=== PATIENT | female | born 1950 | race Caucasian/White ===

== ENCOUNTER 2017-06-10 17:04 | Emergency (ER) | payer MEDICARE ==
[~2017-06-10] VITALS: Ht 149.9 cm; Wt 52.3 kg
[~2017-06-10 17:04] MED LIST: AMLO10TA PO; CIPR-230 PO; LISI40TA4 PO
[2017-06-10 17:33] VITALS: BP 132/74
[2017-06-10] MEDS ORDERED: LISI40TA4 PO (18:14)
[2017-06-10] MEDS ORDERED: ALBU8HFA PO (18:14)
== END 2017-06-10 18:35 | disposition home or self-care (01) ==
LOC: ER 17:05
DX: I10 Essential (primary) hypertension (principal); Z76.0 Encounter for issue of repeat prescription
CPT/HCPCS: 99283